=== PATIENT | female | born 1975 | race Caucasian/White ===

== ENCOUNTER → 2020-07-28 07:48 | Outpatient (CLI) | payer OTHER, SELFPAY ==
[2020-07-18 08:04] VITALS: BMI 29.3
--- NOTE | 2020-07-28 07:49 | MRI_ITS ---
STUDY: MRI RIGHT WRIST WITHOUT CONTRAST REASON FOR EXAM: Right wrist pain, right wrist injury 05/28/2020. TECHNIQUE: Standardized fat and water weighted pulse sequences were obtained in all 3 orthogonal planes. COMPARISON: Radiographs 07/18/2020. FINDINGS: Normal visualized distal radius and ulna. Normal distal radioulnar articulation (DRUJ). There is a small central perforation of the radial aspect of the triangular fibrocartilage (gradient coronal images 20, 21). Normal carpal bones. There is a small marginal osteophyte of the distal radial aspect of the scaphoid (gradient coronal images 27-31). There is an intra-articular body at the dorsal aspect of the lunate-capitate articulation (T2 sagittal image 19; T1 axial image 17) measuring 0.7 x 0.5 cm (transverse x length). Normal pisotriquetral articulation. Normal visualized interosseous scapholunate ligament. There is mild palmar subluxation of the extensor carpi ulnaris tendon (T1 axial image 21). There is very mild flexor carpi radialis tenosynovitis (inversion recovery axial images 16, 17). Normal carpal tunnel with a normal median nerve. Normal carpometacarpal articulation of the thumb. Normal second through fifth carpometacarpal articulations. Normal visualized metacarpal bones. There is no demonstrated soft tissue abnormality. MRI/Upper Ext Joint Only(Routine) IMPRESSION: Intra-articular body at the dorsal aspect of the lunate-capitate articulation. Small central perforation of the radial aspect of the triangular fibrocartilage. Very mild flexor carpi radialis tenosynovitis. Mild palmar subluxation of the extensor carpi ulnaris tendon. Small marginal osteophyte of the distal radial aspect of the scaphoid. Electronically Signed: Alf Drummond MD at 9:41 EDT Tel , Service support ,
== END ==
PROVIDERS: Referring Provider Orthopaedic Surgery; Visit Provider Orthopaedic Surgery
DX: S62.114A Nondisplaced fracture of triquetrum [cuneiform] bone, right wrist, initial encounter for closed fracture (principal)
CPT/HCPCS: 73221